=== PATIENT | female | born 1990 | race Caucasian/White ===

== ENCOUNTER 2017-01-16 13:42 | Emergency (ER) | payer BC ==
--- NOTE | 2017-01-16 14:47 | UC ---
Ear Complaint HPI - HPI Summary HPI Summary: Pt presents to the ED through ambulatory triage. Pt reports had an ear infection approx 1 month ago. Pt states she required 2 rounds of antibiotics ( Amoxicillin and then Bactrim) off abx a 2 weeks. Pt states was doing better until 4 days ago. No with increased pressure and discomfort in left ear . Pt states left side of nose also feels congestion. + PND. no fevers, chills, rash.No cp, sob, abd pain. Pt state does not take decongestants because does not like how they make her feel. Pt has been taking Motrin with mild relief. No fever, chills. No sore throat. no sob, cp, abd pain. No n/v. - History of Current Complaint Chief Complaint: UCEar Stated Complaint: EAR ACHE/COLD SYMPTOMS Time Seen by Provider: 01/16/17 14:33 Hx Obtained From: Patient Hx Last Menstrual Period: 12/26/16 ?: No Onset/Duration: Gradual Onset Severity Initially: Mild Severity Currently: Moderate Aggravating Factors: Nothing Alleviating Factors: Nothing - Allergies/Home Medications Allergies/Adverse Reactions: Allergies Allergy/AdvReac Type Severity Reaction Status Date / Time Doxycycline Allergy Vomiting Verified 01/16/17 14:29 Phenazopyridine Allergy Vomiting Verified 01/16/17 14:29 [From Pyridium] Home Medications: Home Medications Buprenorphine/Naloxone SL TAB* [Suboxone 8-2 mg SL TAB*] 1 tab.sl SL DAILY 01/16 [History Confirmed 01/16/17] Bupropion XL* [Wellbutrin XL *] 150 mg PO DAILY 01/16/17 [History Confirmed ] Gabapentin [Neurontin 250 mg/5 ml] 300 mg PO TID 01/16/17 [History Confirmed ] cloNIDine TAB* [Catapres 0.1 MG TAB*] 0.1 mg PO TID 01/16/17 [History Confirmed 01/16/17] traZODone TAB* [Desyrel TAB*] 100 mg PO BEDTIME PRN MDD sleep 01/16/17 [History Confirmed 01/16/17] PMH/Surg Hx/FS Hx/Imm Hx Previously Healthy: Yes Psychological History: Depression, Other - substance use - opiate recovery on suboxone Other Psychological History: substance use disorder - Surgical History Surgical History: Yes Surgery Procedure, Year, and Place: T&A - Family History Known Family History: Positive: Diabetes - Social History Occupation: Unemployed Lives: With Family Alcohol Use: None Substance Use Type: None Substance Use Comment - Amount & Last Used: Suboxone Smoking Status (MU): Heavy Every Day Tobacco Smoker Review of Systems Constitutional: Negative Skin: Negative Eyes: Negative ENT: Ear Ache, Nasal Discharge, Sinus Congestion Respiratory: Negative Cardiovascular: Negative Gastrointestinal: Negative Genitourinary: Negative Motor: Negative Neurovascular: Negative Musculoskeletal: Negative Neurological: Negative Psychological: Negative All Other Systems Reviewed And Are Negative: Yes Physical Exam Triage Information Reviewed: Yes Appearance: Well-Appearing, No Pain Distress, Well-Nourished Vital Signs: Initial Vital Signs Temp 98.6 F 01/16/17 14:21 Pulse 109 01/16/17 14:21 Resp 18 01/16/17 14:21 BP 112/64 01/16/17 14:21 Pulse Ox 99 01/16/17 14:21 Vital Signs Reviewed: Yes Eye Exam: Normal Eyes: Positive: Conjunctiva Clear ENT: Positive: Hearing grossly normal, Other: - max sinus discomfort No mastoid pain. Negative: TMs normal - left TM ++ fluid, erythema, retraction + PND uvula midline Dental Exam: Normal Neck exam: Normal Neck: Positive: Supple Respiratory Exam: Normal Respiratory: Positive: Chest non-tender, Lungs clear, Normal breath sounds, No respiratory distress, No accessory muscle use Cardiovascular Exam: Normal Cardiovascular: Positive: RRR, No Murmur, Pulses Normal Abdominal Exam: Normal Abdomen Description: Positive: Nontender, No Organomegaly, Soft Bowel Sounds: Positive: Present Musculoskeletal Exam: Normal Musculoskeletal: Positive: Strength Intact Neurological Exam: Normal Neurological: Positive: Alert Psychological Exam: Normal Psychological: Positive: Normal Response To Family Skin Exam: Normal Ear Complaint Course/Dx - Course Course Of Treatment: Pt presents to ED with report of increased left ear pain and congestion, sinus congestion and PND. Pt with fluid and erythema to left ear with inflammed turbinates. Will give Augmentin, flonase. Pt requested zofran second to nausea with amox. hydrate. secretion precautions. Pt comfortable and in agreement with plan - Differential Dx/Diagnosis Provider Diagnoses: left otitis media Discharge - Discharge Plan Condition: Stable Disposition: HOME Prescriptions: Amoxicillin/Clavulanate TAB* [Augmentin TAB 875*] 875 mg PO BID #20 tab Fluticasone NASAL SPRAY 50MCG* [Flonase NASAL SPRAY 50MCG*] 2 spray BOTH NARES DAILY #1 btl Ondansetron ODT TAB* [Zofran 4 MG Odt TAB*] 4 mg PO Q8H PRN #10 tab.odt PRN Reason: Nausea Patient Education Materials: Otitis Media (ED) Referrals: No Primary Care Phys,NOPCP [Primary Care Provider] - Additional Instructions: - Stay well hydrated. Drink plenty of non-alcoholic, non-caffinated beverages - take antibiotics 2 times a day as prescribed - you may develop diarrhea - this is normal - use nasal spray as daily as instructed - After you have been on antibiotics for 2 days - change your toothbrush and your pillowcase. These infections are spread by secrtions - do NOT share eating or drinking utensils - Clean items you share with other people such as iphone, computer mouse, TV remote, etc - Alternate ibuprofen (Advil, motrin) 600mg and tylenol every 3 hours for pain or fever. - Call your doctor or return with questions or concerns
== END 2017-01-16 15:00 | disposition home or self-care (01) ==
LOC: UCCORT 13:42
DX: H66.92 Otitis media, unspecified, left ear (principal); F32.9 Major depressive disorder, single episode, unspecified; F19.20 Other psychoactive substance dependence, uncomplicated; Z72.0 Tobacco use
CPT/HCPCS: 99202; G0463

== ENCOUNTER 2018-06-03 16:00 | Emergency (ER) | payer MEDICAID, OTHER ==
[2018-06-03 16:55] VITALS: BP 140/86
--- NOTE | 2018-06-03 17:05 | UC ---
[facility] HPI - HPI Summary HPI Summary: 28-year-old woman comes in with a chief complaint of left upper molar and right lower molar pain and dental infection. About a week the pain also radiates to both of her ears. Her right ear is chronically clogged. No fevers or chills no rhinorrhea. No shortness of breath no chest congestion. - History of Current Complaint Chief Complaint: UCEar Stated Complaint: BILATERAL EAR PAIN Time Seen by Provider: 06/03/18 16:42 Hx Last Menstrual Period: 1.5.weeks Pain Intensity: 3 - Allergies/Home Medications Allergies/Adverse Reactions: Allergies Allergy/AdvReac Type Severity Reaction Status Date / Time doxycycline Allergy Vomiting Verified 06/03/18 16:58 latex Allergy Rash Verified 06/03/18 16:47 phenazopyridine Allergy Vomiting Verified 06/03/18 16:58 [From Pyridium] Home Medications: Home Medications Dextroamphetamine/Amphetamine [Adderall 30 mg-] 1 tab PO DAILY 06/03/18 [ History Confirmed 06/03/18] Sertraline* [Zoloft*] 100 mg PO DAILY 06/03/18 [History Confirmed 06/03/18] PMH/Surg Hx/FS Hx/Imm Hx Previously Healthy: Yes - DENTAL CARIES - Surgical History Surgical History: Yes Surgery Procedure, Year, and Place: T&A - Family History Known Family History: Positive: Diabetes - Social History Alcohol Use: None Substance Use Type: None Substance Use Comment - Amount & Last Used: Suboxone Smoking Status (MU): Heavy Every Day Tobacco Smoker Review of Systems All Other Systems Reviewed And Are Negative: Yes Constitutional: Positive: Negative Skin: Positive: Negative Eyes: Positive: Negative ENT: Positive: Dental Pain, Ear Ache Respiratory: Positive: Negative Cardiovascular: Positive: Negative Gastrointestinal: Positive: Negative Motor: Positive: Negative Neurovascular: Positive: Negative Musculoskeletal: Positive: Negative Neurological: Positive: Negative Psychological: Positive: Negative Is Patient Immunocompromised?: No Physical Exam Triage Information Reviewed: Yes Appearance: Well-Appearing, No Pain Distress, Well-Nourished Vital Signs: Initial Vital Signs Temp 98.4 F 06/03/18 16:51 Pulse 108 06/03/18 16:51 Resp 20 06/03/18 16:51 BP 140/86 06/03/18 16:51 Pulse Ox 98 06/03/18 16:51 Vital Signs Reviewed: Yes Eye Exam: Normal Eyes: Positive: Conjunctiva Clear ENT: Positive: Pharynx normal, TMs normal Dental: Positive: Gross Decay/Caries @ - RT LOWER,LEFT UPPER Neck exam: Normal Neck: Positive: Supple Respiratory: Positive: Lungs clear, Normal breath sounds, No respiratory distress Cardiovascular: Positive: RRR Musculoskeletal Exam: Normal Musculoskeletal: Positive: Strength Intact, ROM Intact Neurological Exam: Normal Neurological: Positive: Alert, Muscle Tone Normal Psychological Exam: Normal Psychological: Positive: Age Appropriate Behavior Skin Exam: Normal Dental Complaint Course/Dx - Differential Dx/Diagnosis Provider Diagnosis: Dental infection Discharge - Sign-Out/Discharge Documenting (check all that apply): Patient Departure All imaging exams completed and their final reports reviewed: No Studies - Discharge Plan Condition: Stable Disposition: HOME Prescriptions: Amoxicillin/Clavulanate TAB* [Augmentin TAB 875*] 875 mg PO BID #20 tab Fluconazole 150 MG TAB* [Diflucan 150 MG TAB*] 150 mg PO ONCE #2 tablet Patient Education Materials: Toothache (ED) Referrals: Lincoln Fam MD [Primary Care Provider] - Additional Instructions: FOLLOW UP WITH YOUR DENTIST. GET RECHECKED FOR ANY WORSENING OF YOUR CONDITION OR QUESTIONS OR CONCERNS. - Billing Disposition and Condition Condition: STABLE Disposition: Home
== END 2018-06-03 17:09 | disposition home or self-care (01) ==
LOC: UCCORT 16:00
DX: K04.7 Periapical abscess without sinus (principal); F17.290 Nicotine dependence, other tobacco product, uncomplicated; Z88.1 Allergy status to other antibiotic agents; Z88.8 Allergy status to other drugs, medicaments and biological substances; Z91.040 Latex allergy status
CPT/HCPCS: 99212; G0463